=== PATIENT | male | born 1945 | race Caucasian/White ===

== ENCOUNTER 2017-12-27 11:54 | Emergency (ER) | payer OTHER ==
[2017-12-27 12:02] VITALS: BP 113/60; PULSE 90; TEMP 98; BMI 33.1
[2017-12-27] MEDS ORDERED: RABIES VACCINE (PCEC)/PF 2.5 UNIT/VIAL IM ONE (12:32)
[2017-12-27] MEDS ORDERED: RABIES IMMUNE GLOBULIN 300 UNITS/2 ML VIAL IM ONE (12:32)
[2017-12-27] MEDS ORDERED: DIPHTH,PERTUSS(ACELL),TET 0.5 ML DISP.SYRIN IM ONE (12:36)
[2017-12-27] MEDS ORDERED: RABIES IMMUNE GLOBULIN 300 UNITS/2 ML VIAL ONE (12:40)
--- NOTE | 2017-12-27 12:44 | PDOC ---
History of Present Illness - General Chief Complaint: Bite Stated Complaint: BITE Time Seen by Provider: 12/27/17 12:13 History Source: Patient Exam Limitations: No Limitations - History of Present Illness Initial Comments: 12/27/17 12:37 This is a 72-year-old male with history of CHF and hypertension who presents emergency Department with wounds to his right bradshaw for 2 days status post cat bite. Patient states he was in an area with many feral cats and when he stepped out of his car the other day 1 CAD. Him on the right bradshaw and then scratched him immediately below the bite. Patient states pain is increased over the past 2 days in this is the reason he seeks care today. Past History - Past Medical History Allergies/Adverse Reactions: Allergies Allergy/AdvReac Type Severity Reaction Status Date / Time No Known Allergies Allergy Verified 12/27/17 12:02 Home Medications: Ambulatory Orders Metoprolol Tartrate 50 mg PO BID 01/13/14 Amox-Tr/K Cl [Augmentin - 875Mg Tablet] 1 tab PO BID #14 tablet 12/27/17 Apixaban [Eliquis] 5 mg PO DAILY 12/27/17 Anemia: No Asthma: No Cancer: No Cardiac Disorders: Yes (atrial fibrillation) CVA: No COPD: No CHF: No Dementia: No Diabetes: No GI Disorders: No Disorders: Yes (BPH) HTN: Yes Hypercholesterolemia: No Liver Disease: No Seizures: No Thyroid Disease: No - Suicide/Smoking/Psychosocial Hx Smoking Status: Yes Smoking History: Never smoked Have you smoked in the past 12 months: No Number of Cigarettes Smoked Daily: 0 If you are a former smoker, when did you quit?: 1973 Information on smoking cessation initiated: No Hx Alcohol Use: Yes (Occasional) Drug/Substance Use Hx: Yes Substance Use Type: Alcohol Hx Substance Use Treatment: No Review of Systems - Review of Systems Able to Perform ROS?: Yes Is the patient limited Sinhala proficient: No Constitutional: No: Symptoms Reported HEENTM: No: Symptoms Reported Respiratory: No: Symptoms reported Cardiac (ROS): No: Symptoms Reported ABD/GI: No: Symptoms Reported : No: Symptoms Reported Musculoskeletal: No: Symptoms Reported Integumentary: Yes: See HPI Neurological: No: Symptoms reported *Physical Exam - Vital Signs Last Vital Signs Temp Pulse Resp BP Pulse Ox 98 F 90 20 113/60 99 12/27/17 11:58 06/09/18 11:58 12/27/17 11:58 12/27/17 11:58 12/27/17 11:58 - Physical Exam General Appearance: Yes: Appropriately Dressed. No: Apparent Distress Neck: positive: Trachea midline, Supple Respiratory/Chest: positive: Lungs Clear, Normal Breath Sounds. negative: Respiratory Distress, Accessory Muscle Use Cardiovascular: positive: Regular Rhythm, Regular Rate. negative: Murmur Integumentary: positive: Other (1 cm circular wound noted to anterior right bradshaw. Scab present over wound. 2 cm circular area of erythema noted around wound. No streaking present. single linear scratch approximately 4 cm distal to bite) Medical Decision Making - Medical Decision Making 12/27/17 12:40 A/P: 72-year-old male with CHF and hypertension with cat bite to right bradshaw for 2 days 1 cm circular wounds noted with 2 cm circular area of erythema surrounding the wound. Wound with a scab present No streaking is noted. Area is not warm to the touch and is mildly tender 3 cm superficial linear scratch noted approximately 4 cm distal to bite wound Given patient has no systemic signs of infection- no streaking, fever, chills present likely localized to the wound area. Patient states this is a feral cat that has been discarded by it's previous owners of unknown length of time. I will treat the patient for rabies exposure with immunoglobulin and vaccine at this time. We'll discharge the patient home to take Augmentin to treat for bite wound infection. I'll give the patient a tetanus shot as his vaccine status is unknown. While the patient is on anticoagulant therapy at this time, the benefits of intramuscular rabies and tetanus prophylaxis outweigh the risks of intramuscular bleeding. This has have been explained to the patient who agrees with treatment plan. *DC/Admit/Observation/Transfer Diagnosis at time of Disposition: Cat bite involving extremity - Discharge Dispostion Disposition: HOME Condition at time of disposition: Stable Decision to Admit order: No - Prescriptions Prescriptions: Amox-Tr/K Cl [Augmentin - 875Mg Tablet] 1 tab PO BID #14 tablet - Referrals Referrals: Elmer Boudreaux MD [Primary Care Provider] - - Patient Instructions Printed Discharge Instructions: DI for Animal Bites Additional Instructions: You must return for additional rabies vaccines on December 30, January 03, and January 10. Take Augmentin twice a day until all medications are completed Take Tylenol or Motrin as needed for fever and/or pain. Follow distance education teacher's instructions for appropriate dosage. Return to emergency department immediately should to express any fevers, chills , worsening pain at the bite, red streaks from the wound or any other concerns. Thank you very much for choosing us to provide emergent of care needs. - Post Discharge Activity
== END 2017-12-27 13:08 | disposition home or self-care (01) ==
LOC: JERFT 11:54
PROC: 3E0234Z Introduction of Serum, Toxoid and Vaccine into Muscle, Percutaneous Approach (ICD-10-PCS; principal; 2017-12-27)
PROC: 3E0234Z Introduction of Serum, Toxoid and Vaccine into Muscle, Percutaneous Approach (ICD-10-PCS; 2017-12-27)
DX: S81.851A Open bite, right lower leg, initial encounter (principal); W55.01XA Bitten by cat, initial encounter; Y93.89 Activity, other specified; Y92.410 Unspecified street and highway as the place of occurrence of the external cause; I50.9 Heart failure, unspecified; I10 Essential (primary) hypertension; Z23 Encounter for immunization; Z20.3 Contact with and (suspected) exposure to rabies
CPT/HCPCS: 90375; 90675; 90715; 99281-25